=== PATIENT | female | born 1965 | race Caucasian/White ===

== ENCOUNTER 2018-06-29 22:50 | Emergency (ER) | payer BC ==
[2018-06-30] MEDS ORDERED: Milk Of Magnesia 30 ML UDCUP ONE (00:35)
[2018-06-30] MEDS ORDERED: Famotidine/PF 20 mg/2ml Vial ONE (00:35)
[2018-06-30] MEDS ORDERED: Lidocaine Viscous Sol 2% 15 ml UD Cup ONE (00:35)
--- NOTE | 2018-06-30 07:31 | ULT ---
RIGHT UPPER QUADRANT ULTRASOUND: Date: 06/29/18 COMPARISON: None. HISTORY: Right upper quadrant pain. TECHNIQUE: Multiplanar Velasquez scale sonographic imaging of the right upper quadrant obtained. FINDINGS: No focal liver lesion or intrahepatic biliary dilatation seen. The imaged pancreas appears grossly un remarkable. The cotton presser reports a negative Urrutia's sign. No gallbladder wall thickening or pericholecystic fluid. No gallstones are seen. The common duct wojciech ures 5.0 mm, within normal limits. The right kidney measures 11.7 cm craniocaudal dimension and demonstrates no stone, hydronephrosis, o r mass. IMPRESSION: No acute findings. POS: [facility]
== END 2018-06-30 00:59 | disposition home or self-care (01) ==
LOC: ERS 22:50
DX: R10.13 Epigastric pain (principal); F41.9 Anxiety disorder, unspecified; Z87.891 Personal history of nicotine dependence; Z79.899 Other long term (current) drug therapy
CPT/HCPCS: 76705; 96374; S0028

== ENCOUNTER 2018-08-10 07:35 | Outpatient (CLI) | payer BC ==
--- NOTE | 2018-08-10 13:34 | NM ---
RADIONUCLIDE HEPATOBILIARY SCAN AND GALLBLADDER EJECTION FRACTION: History: Abdominal pain. FINDINGS: Early images show physiologic uptake of radiotracer throughout the hepatic parenchyma with prompt exc retions of the gallbladder and small bowel. Gallbladder seen at 9 minutes. Uptake within the small mloly wel at 53 minutes. After administration of 8 oz fatty meal, there is progressive excretion. Ejection fraction is calculated at 50%. IMPRESSION: No evidence of biliary obstruction. Normal gallbladder ejection fraction. POS: [facility]
== END 2018-08-10 07:36 | disposition home or self-care (01) ==
LOC: NM 07:35
PROVIDERS: ATTEND Internal Medicine
DX: R10.9 Unspecified abdominal pain (principal); R11.0 Nausea
CPT/HCPCS: 78227; A9537